=== PATIENT | female | born 1945 | race Caucasian/White ===

== ENCOUNTER 2017-02-08 05:51 | Emergency (ER) | payer MEDICARE, OTHER ==
[2015-01-11 14:10] VITALS: BMI 29.9
[~2017-02-08 05:51] MED LIST: BAYER ASPIRIN325 MG PO; CARAFATE1 G/10 ML PO; FISH OIL 1,0001 CA1 PO; NIFEREX-150 CAP1 CA3 PO; OS-CAL 500+D TA1 TAB PO; PRILOSEC10 MG PO; PROTONIX I40 MG/VIAL PO; TRIAMTERENE-HCT1 TA1 PO; VITAMIN B-121000 MCG PO
[2017-02-08 07:00] LABS: BASOPHILS 0.5 % (0-2); EOSINOPHILS 1.2 % (0-7); HEMATOCRIT 44.4 % (36.0-48.0); HEMOGLOBIN 14.8 g/dL (12-16); LYMPHOCYTES 22.6 % (15-50); MCH 32.1 pg (26.0-34.0); MCHC 33.3 g/dL (31.0-37.0); MCV 96.3 fL (80.0-100.0); MEAN PLATELET VOLUME 9.5 fL (7.4-10.4); MONOCYTES 19.8 % (2-11); NEUTROPHILS 55.9 % (40-80); PLATELET COUNT 216 10x3/uL (130-400); RBC 4.61 10x6/uL (4.00-5.40); RDW 13.1 % (11.5-14.5); WBC 4.3 10x3/uL (4.8-10.8)
[2017-02-08 07:06] LABS: APTT 28.6 SECONDS (22.8-39.4); INR 0.92 (0.85-1.17); PROTIME 12.2 SECONDS (11.6-15.0)
[2017-02-08 07:08] LABS: ALBUMIN 3.7 g/dL (3.4-5.0); ANION GAP 9.9 mmol/L (8-16); BILIRUBIN - TOTAL 0.38 mg/dL (0.2-1.3); CALCIUM 9.2 mg/dL (8.5-10.1); CREATININE - SERUM 1.4 mg/dL (0.6-1.3); POTASSIUM - SERUM 3.9 mmol/L (3.5-5.1); PROTEIN - SERUM 7.6 g/dL (6.4-8.2)
== END 2017-02-08 08:36 | disposition home or self-care (01) ==
LOC: D.ER 05:51
PROVIDERS: Emergency Medicine
DX: M79.604 Pain in right leg (principal); I10 Essential (primary) hypertension

== ENCOUNTER → 2017-02-24 12:26 | Outpatient (CLI) | payer MEDICARE, OTHER ==
[2015-01-11 14:10] VITALS: BMI 29.9
== END | disposition home or self-care (01) ==
LOC: D.MRI 12:26
DX: M54.41 Lumbago with sciatica, right side (principal)

== ENCOUNTER 2017-04-22 17:07 | Outpatient (CLI) | payer MEDICARE, OTHER ==
[2015-01-11 14:10] VITALS: BMI 29.9
== END 2017-04-22 17:19 | disposition home or self-care (01) ==
LOC: D.MAMMO 17:07
DX: Z12.31 Encounter for screening mammogram for malignant neoplasm of breast (principal)

== ENCOUNTER → 2018-06-11 22:40 | Outpatient (CLI) | payer MEDICARE, OTHER ==
[2015-01-11 14:10] VITALS: BMI 29.9
== END | disposition home or self-care (01) ==
LOC: D.MAMMO 06-01 11:45
DX: Z12.31 Encounter for screening mammogram for malignant neoplasm of breast (principal)

== ENCOUNTER 2019-08-16 08:00 | Outpatient (CLI) | payer MEDICARE, OTHER ==
[2015-01-11 14:10] VITALS: BMI 29.9
== END 2019-08-16 23:59 | disposition home or self-care (01) ==
LOC: D.MAMMO 08:00
PROVIDERS: ATTEND Legal Medicine
DX: Z12.31 Encounter for screening mammogram for malignant neoplasm of breast (principal)

== ENCOUNTER 2020-06-05 20:55 | Emergency (ER) | payer MEDICARE, OTHER ==
[~2020-06-05] VITALS: Ht 182.9 cm; Wt 93.2 kg
[2020-06-05 21:02] VITALS: Ht 182.9 cm; Wt 93.2 kg
[2020-06-05 21:36] VITALS: BP 108/72
[2020-06-05 21:42] LABS: BASOPHILS 0.8 % (0-2); EOSINOPHILS 2.2 % (0-7); HEMATOCRIT 41.5 % (36.0-48.0); HEMOGLOBIN 13.7 g/dL (12-16); IMMATURE GRANULOCYTES 0.3 % (0-5); LYMPHOCYTES 24.5 % (15-50); MCH 32.8 pg (26.0-34.0); MCV 99.3 fL (80.0-100.0); MONOCYTES 13.2 % (2-11); PLATELET COUNT 215 10x3/uL (130-400); RBC 4.18 10x6/uL (4.00-5.40); RDW 13.2 % (11.5-14.5); WBC 3.7 10x3/uL (4.8-10.8)
[2020-06-05 21:44] LABS: APTT 31.1 SECONDS (22.8-39.4); INR 0.94 (0.85-1.17); PROTIME 12.5 SECONDS (11.6-15.0)
[2020-06-05 21:47] LABS: ANION GAP 7.3 mmol/L (8-16); CALCIUM 8.7 mg/dL (8.5-10.1); CARBON DIOXIDE 29.2 mmol/L (21.0-32.0); CREATININE - SERUM 1.5 mg/dL (0.6-1.3); POTASSIUM - SERUM 3.5 mmol/L (3.5-5.1)
[2020-06-05 21:51] LABS: ALBUMIN 3.5 g/dL (3.4-5.0); BILIRUBIN - TOTAL 0.45 mg/dL (0.2-1.3)
== END 2020-06-05 22:48 | disposition home or self-care (01) ==
LOC: D.ER 20:55
PROVIDERS: Family Medicine
DX: K62.5 Hemorrhage of anus and rectum (principal); Z98.890 Other specified postprocedural states; I10 Essential (primary) hypertension